=== PATIENT | male | born 1960 | race Caucasian/White ===

== ENCOUNTER 2018-01-09 09:52 | Day surgery (SDC) | payer OTHER ==
[2018-01-09] MEDS ORDERED: MIDAZOLAM 1 MG/ML 2 ML INJ ×2 (11:24)
[2018-01-09] MEDS ORDERED: FENTAnyl 50 MCG/ML VIAL (11:25)
== END 2018-01-09 13:22 | disposition home or self-care (01) ==
LOC: GIL 09:52
DX: Z12.11 Encounter for screening for malignant neoplasm of colon (principal); K64.4 Residual hemorrhoidal skin tags
CPT/HCPCS: 45378